=== PATIENT | male | born 1950 | race Caucasian/White ===

== ENCOUNTER 2016-09-06 16:42 | Day surgery (SDCO) | payer MEDICARE, OTHER ==
[2016-09-06 17:33] LABS: BASOPHIL 0.7 % (0-2); EOSINOPHIL 2.3 % (0-7); LYMPHOCYTE 13.3 % (15-48); MCH 31.1 pg (25.0-31.0); MCHC 34.8 g/dL (32.0-36.0); MCV 89.3 fL (78.0-100.0); MONOCYTE 8.1 % (0-12); MPV 10.6 fL (6.0-9.5); NEUTROPHIL 75.6 % (41-80); PLT 179 K/uL (150-400); RBC 5.15 M/uL (4.70-6.00); RDW 12.6 % (11.5-14.0); WBC 8.2 K/uL (4.0-10.5)
[2016-09-06 17:38] LABS: BILIRUBIN NEGATIVE (NEGATIVE); BLOOD NEGATIVE Ery/uL (NEGATIVE); CLARITY CLEAR (CLEAR); COLOR YELLOW (YELLOW); GLUCOSE (U) NORMAL (NORMAL); KETONE (U) NEGATIVE (NEGATIVE); LEUKOCYTES NEGATIVE Leu/uL (NEGATIVE); NITRITE NEGATIVE (NEGATIVE); PROTEIN NEGATIVE (NEGATIVE); UROBILINOGEN 0.2 mg/dL (0.2-1.0)
[2016-09-06 17:51] LABS: ALBUMIN 4.8 g/dL (3.4-4.8); BILIRUBIN - TOTAL 0.8 mg/dL (0.1-1.0); CREATININE 1.1 mg/dL (0.7-1.2); GLOBULIN (CALCULATION) 2.2 g/dL (2.2-4.2); POTASSIUM 4.5 mmol/L (3.5-5.1)
[2016-09-07 04:20] LABS: HCT 39.9 % (42.0-52.0); HGB 13.6 g/dl (13.2-18.0); MCH 31.2 pg (25.0-31.0); MCHC 34.1 g/dL (32.0-36.0); MCV 91.5 fL (78.0-100.0); MPV 10.6 fL (6.0-9.5); RBC 4.36 M/uL (4.70-6.00); RDW 12.6 % (11.5-14.0); WBC 5.8 K/uL (4.0-10.5)
[2016-09-07 04:36] LABS: CREATININE 1.1 mg/dL (0.7-1.2); POTASSIUM 3.6 mmol/L (3.5-5.1)
== END 2016-09-07 14:27 | disposition home or self-care (01) ==
LOC: FER 16:42 → FOR 19:49 → FMS 22:43
PROVIDERS: Internal Medicine; ADMIT Surgery
DX: K35.80 Unspecified acute appendicitis (principal); K21.9 Gastro-esophageal reflux disease without esophagitis; K76.0 Fatty (change of) liver, not elsewhere classified; I10 Essential (primary) hypertension; E11.9 Type 2 diabetes mellitus without complications; E78.00 Pure hypercholesterolemia, unspecified; E78.5 Hyperlipidemia, unspecified; F41.9 Anxiety disorder, unspecified; Z96.652 Presence of left artificial knee joint; Z90.49 Acquired absence of other specified parts of digestive tract; Z98.890 Other specified postprocedural states; Z79.899 Other long term (current) drug therapy; Z87.891 Personal history of nicotine dependence
CPT/HCPCS: 36415; 80048; 80053; 81003; 82150; 83690; 85025; 88304; 94010; G0378; J0131; J1100; J1170; J2405; J2543; J2704; J2710; J3010; Q9967